=== PATIENT | male | born 1970 | race Two or more races ===

== ENCOUNTER 2017-10-21 18:39 | Emergency (ER) | payer OTHER ==
[~2017-10-21] VITALS: Ht 167.6 cm; Wt 75.0 kg
[2017-10-21 18:47] VITALS: BP 128/86
[2017-10-21] MEDS ORDERED: KETOROLAC 30 MG/1 ML IM ONE (19:30)
[2017-10-21] MEDS ORDERED: METHOCARBAMOL 750 MG TABLET PO ONE (19:30)
[2017-10-21] MEDS ORDERED: METHOCARBAMOL 750 MG TABLET ONE (19:37)
[2017-10-21] MEDS ORDERED: KETOROLAC 30 MG/1 ML ONE (19:37)
== END 2017-10-21 20:40 | disposition home or self-care (01) ==
LOC: EDBD 18:39 → ED 20:34
DX: S23.3XXA Sprain of ligaments of thoracic spine, initial encounter (principal); X58.XXXA Exposure to other specified factors, initial encounter; Y93.89 Activity, other specified; Y99.8 Other external cause status; Y92.410 Unspecified street and highway as the place of occurrence of the external cause
CPT/HCPCS: 72072; 72110; 72125; 96372; 99284; J1885